=== PATIENT | male | born 1960 | race Caucasian/White ===

== ENCOUNTER 2017-03-07 10:46 | Emergency (ER) | payer BC ==
--- NOTE | ~2017-03-07 | CR72 ---
[facility] A Service of [facility] RADIOLOGY TEXT RESULTS PATIENT: TORRES BOLDEN LOCATION: SED : 60 UNIT #: [id number] AGE: [address]: Lenin Mathis MD SEX: M ORDER DR: [id number] [place] [id number] MR#: [id number] Acc #: [id number] NAME: TORRES BOLDEN : 1960 SEX: M STUDY DATE/TIME: 03/07/2017 10:59 UNIT: SED ROOM: STUDY DESCRIPTION: CR Chest Single View Portable Attending Physician: Lenin Mathis M.D. Ordering Physician: Lenin Mathis M.D. Primary Care Physician: Desean Barry M.D. MEDICAL IMAGING REPORT This report is preliminary unless electronic signature is present. EXAM Single view chest INDICATIONS Chest pain. Shortness of air. 3-day duration. FINDINGS Single portable view of the chest compared to 02/26/2016. Heart and hilar contours are normal. Lungs are clear. No pleural effusion. IMPRESSION No acute cardiopulmonary findings. Dictated by... Prashanth Parks M.D. THIS IS AN ELECTRONICALLY VERIFIED REPORT Prashanth Parks M.D. at 03/07/2017 2:18 PM RPC/pcl TD: 03/07/2017 14:16 JOB #: [id number] MEDICAL IMAGING REPORT Page 1 of 1
--- NOTE | ~2017-03-07 | EKG ---
PATIENT: TORRES BOLDEN UNIT #: [id number] Ventricular Rate: 82 BPM Atrial Rate: 82 BPM P-R Interval: 156 ms QRS Duration: 78 ms Q-T Interval: 370 ms QTC Calculation(Bezet): 432 ms P Radom: 63 degrees Calculated R Radom: 19 degrees Calculated T Radom: 33 degrees Diagnosis Line: Normal sinus rhythm with sinus arrhythmia Diagnosis Line: Normal ECG Diagnosis Line: When compared with ECG of 24-JUL-2015 11:50, Diagnosis Line: No significant change was found Diagnosis Line: Confirmed by PERI GARCIA MD ([id number]) on Diagnosis Line: 03/09/2017 12:44:37 PM INTERPRETING MD: JOSE KRAFT
[~2017-03-07 10:46] MED LIST: CYMBALTA30 MG PO; EXCEDRIN EXTRA1 TAB PO; IMODIUM2 MG PO; OXYCODON-ACETA1 EAC1 PO; PANTOPRAZOLE SO40 MG PO
[2017-03-07 11:03] LABS: BASOPHIL% 0.7 % (0-2.5); EOSINOPHIL# 0.1 X10e3 (0-0.7); HEMATOCRIT 42.3 % (38.0-50.0); HEMOGLOBIN 14.1 gm/dL (13.0-16.0); LYMPHOCYTE# 1.5 X10e3 (1.0-3.5); LYMPHOCYTE% 31.4 % (17.0-45.0); MEAN CELL VOLUME 87.7 FL (83-96); MEAN CORPUSCULAR HEMOGLOBIN 29.3 PG (28-34); MEAN CORPUSCULAR HGB CONC 33.4 g/dL (30-36); MEAN PLATELET VOLUME 7.8 FL (6.5-11.5); MONOCYTE# 0.5 X10e3 (0-1.0); MONOCYTE% 10.2 % (3.0-12.0); NEUTROPHIL# 2.7 X10e3 (1.5-7.1); NEUTROPHIL% 55.7 % (40-75); PLATELET COUNT 223 X10e3 (140-420); RED BLOOD COUNT 4.82 X10e (3.90-5.60); RED CELL DISTRIBUTION WIDTH 13.9 % (11.0-15.5); WHITE BLOOD COUNT 4.8 X10e3 (4.0-10.5)
[2017-03-07] MEDS ORDERED: DULOXETINE HCL60 MG (11:04)
[2017-03-07] MEDS ORDERED: VIAGRA (11:04)
[2017-03-07] MEDS ORDERED: METOPROLOL SUCC50 MG (11:04)
[2017-03-07] MEDS ORDERED: GRALISE600 MG (11:04)
[2017-03-07] MEDS ORDERED: SUBOXONE 12 MG1 EACH (11:04)
[2017-03-07] MEDS ORDERED: HYDRALAZINE HCL50 MG (11:04)
[2017-03-07 11:11] LABS: DIFF IND NO
[2017-03-07 11:22] LABS: ALBUMIN SERUM 4.3 g/dL (3.5-5.0); BILIRUBIN, DIRECT 0.1 mg/dL (0.0-0.2); BILIRUBIN,INDIRECT 0.6 mg/dL (0.0-0.9); BILIRUBIN,TOTAL 0.7 mg/dL (0.2-2.0); BUN/CREATININE RATIO 22.72; CALCIUM SERUM 8.7 mg/dL (8.4-10.2); CREATININE SERUM 1.1 mg/dL (0.6-1.4); GLOM FILT RATE Estimated 74.7 mL/min (>60); POTASSIUM 3.8 mmol/L (3.5-5.1); PROTEIN TOTAL SERUM 7.4 g/dL (6.0-8.3)
[2017-03-07 11:24] LABS: POC - CKMB 1.7 ng/mL (0.0-7.9)
[2017-03-07 11:25] LABS: POC - TROPONIN <0.05 ng/mL (<=0.05)
[2017-03-07 13:37] LABS: POC - CKMB 1.2 ng/mL (0.0-7.9); POC - TROPONIN <0.05 ng/mL (<=0.05)
== END 2017-03-07 14:16 | disposition home or self-care (01) ==
LOC: SED 10:46
PROVIDERS: Emergency Medicine
DX: R07.89 Other chest pain (principal); I10 Essential (primary) hypertension; F32.9 Major depressive disorder, single episode, unspecified; Z93.3 Colostomy status; Z98.890 Other specified postprocedural states; Z90.89 Acquired absence of other organs; Z79.899 Other long term (current) drug therapy
CPT/HCPCS: 36415; 71010; 80048; 80076; 82553; 84484; 85025; 93005; 99285